=== PATIENT | female | born 1960 | race Asian ===

== ENCOUNTER 2017-06-26 16:56 | Emergency (ER) | payer OTHER ==
[~2017-06-26] VITALS: Ht 162.6 cm; Wt 75.3 kg
[~2017-06-26 16:56] MED LIST: ACET-309 PO; ALBUSOL IN; ARIPIPRAZOLE30 MG PO; ASPI325T40 PO; ATEN25TA21 PO; BUPR150T PO; CLON0.5T36 PO; CLOP75TA2 PO; DOCU100C10 PO; DOXYCYCLINE40 MG PO; DULOXETINE HCL60 MG PO; FERROUS SULF325 M1 PO; FURO20TA67 PO; GABA100C2 PO; HYDR5TAB9 PO; INSU100I2 SC; INSUINJ20 SC; IPRATROPIUM/ INH; KETO2CRE EX; ROWEEPRA500 MG PO; SIMV20TA2 PO
[2017-06-26 19:23] LABS: PLATELET COUNT 456 K/uL (152-353)
[2017-06-26 19:35] LABS: POTASSIUM 3.7 mmol/L (3.6-5.2); SODIUM 140 mmol/L (136-145)
[2017-06-26] MEDS ORDERED: BUPROPION HCL XL PO (21:35)
[2017-06-26] MEDS ORDERED: CLOPIDOGREL PO (21:38)
[2017-06-26] MEDS ORDERED: DIVALPROEX DR PO ×2 (21:40→21:41)
[2017-06-26] MEDS ORDERED: ESCITALOPRAM PO (21:46)
[2017-06-26] MEDS ORDERED: LEVO-T50 MCG PO (21:50)
[2017-06-26] MEDS ORDERED: LISI5TAB10 PO (21:51)
[2017-06-26] MEDS ORDERED: METFORMIN PO (21:52)
[2017-06-26] MEDS ORDERED: PROTONIX20 MG PO (21:53)
[2017-06-26] MEDS ORDERED: POTASSIUM CL ER PO (21:55)
[2017-06-26] MEDS ORDERED: CLON0.5T36 PO ×2 (21:56→21:57)
[2017-06-26] MEDS ORDERED: LEVEMIR FL100 UNIT/M SC (22:00)
[2017-06-26] MEDS ORDERED: DOXYCYCLINE PO (22:08)
== END 2017-06-26 20:26 | disposition other institution (70) ==
LOC: ED 16:56
PROVIDERS: Specialist
DX: Z04.6 Encounter for general psychiatric examination, requested by authority (principal); F32.89 Other specified depressive episodes
CPT/HCPCS: 36415; 80053; 80061; 80162; 80164; 80185; 80307; 80320; 80329; 81000; 83036; 83735; 84100; 84134; 84439; 84443; 85027; 85610; 93005; 99285

== ENCOUNTER 2021-07-03 00:53 | Emergency (ER) | payer OTHER ==
[~2021-07-03] VITALS: Ht 162.6 cm; Wt 84.4 kg
[~2021-07-03 00:53] MED LIST changes: +ARIPIPRAZOLE5 MG PO; +ASCO500T18 PO; +BUPROPION HCL XL PO; +CLOPIDOGREL75 MG PO; +DIVA125C PO; +DIVALPROEX DR PO; +DIVALPROEX500 MG PO; +DOXYCYCLINE PO; +ESCI10TA PO; +ESCITALOPRAM PO; +GABA300C2 PO; +LEVEMIR FL100 UNIT/M SC; +LEVO-T50 MCG PO; +LISI5TAB10 PO; +METFORMIN PO; +MULTTAB52 PO; +POTASSIUM CL ER PO; +PROTONIX20 MG PO; +RISP0.25 PO
[2021-07-03 01:46] LABS: PLATELET COUNT 313 K/uL (152-353)
[2021-07-03 02:02] LABS: POTASSIUM 3.1 mmol/L (3.6-5.2)
[2021-07-03 03:00] VITALS: BP 136/56
[2021-07-03] MEDS ORDERED: ABILIFY MYCITE30 M2 PO (05:15)
[2021-07-03] MEDS ORDERED: VAZALORE81 MG PO (05:16)
[2021-07-03] MEDS ORDERED: AMLODIPINE BESYLATE PO (05:17)
[2021-07-03] MEDS ORDERED: LIPITOR10 MG PO (05:18)
[2021-07-03] MEDS ORDERED: CRANBERRY425 M1 PO (05:19)
[2021-07-03] MEDS ORDERED: ZIPR20CA PO (05:20)
[2021-07-03] MEDS ORDERED: JANUVIA100 MG PO (05:20)
[2021-07-03] MEDS ORDERED: FURO40TA93 PO (05:21)
[2021-07-03] MEDS ORDERED: LEVEMIR FL100 UNIT/M SC (05:23)
[2021-07-03] MEDS ORDERED: MELATONIN5 MG PO (05:24)
[2021-07-03] MEDS ORDERED: SEROQUEL25 MG PO (06:07)
[2021-07-03] MEDS ORDERED: SPIRONOLACT25 MG PO (06:08)
[2021-07-03] MEDS ORDERED: EUTHYROX75 MCG PO (06:09)
[2021-07-03] MEDS ORDERED: BENZ1TAB43 PO (06:11)
[2021-07-03] MEDS ORDERED: BUSPIRONE HYDR7.5 MG PO (06:12)
[2021-07-03] MEDS ORDERED: DIVALPROEX250 MG PO (06:14)
[2021-07-03] MEDS ORDERED: NOVOLOG100 UNIT/M SC ×2 (06:15→06:31)
[2021-07-03] MEDS ORDERED: TYLENOL325 MG PO (06:33)
[2021-07-03] MEDS ORDERED: [UNRECOGNIZED DRUG - OTHER] NAS (06:34)
[2021-07-03] MEDS ORDERED: LORA0.5T17 PO (06:35)
[2021-07-03] MEDS ORDERED: HALO5INJ3 IM (06:37)
[2021-07-03] MEDS ORDERED: GLUCAGON1 M1 IM (06:39)
[2021-07-03] MEDS ORDERED: NITROGLYCERIN0.4 MG SL (06:40)
== END 2021-07-03 03:00 | disposition still patient (30) ==
LOC: ED 00:53
PROVIDERS: Emergency Medicine Emergency Medical Services
DX: R45.1 Restlessness and agitation (principal); R46.89 Other symptoms and signs involving appearance and behavior; E87.6 Hypokalemia; Z11.52 Encounter for screening for COVID-19; Z04.6 Encounter for general psychiatric examination, requested by authority
CPT/HCPCS: 80053; 85027; 87635; 93005; 99283; U0003